=== PATIENT | female | born 1945 | race Asian ===

== ENCOUNTER 2022-02-19 21:34 | Emergency (ER) | payer MEDICAID ==
[~2022-02-19] VITALS: Ht 152.4 cm; Wt 69.0 kg
[2022-02-19] MEDS ORDERED: ONDANSETRON HCL 4MG/2ML INJ IV STA (22:13)
[2022-02-19] MEDS ORDERED: SODIUM CHLORIDE 0.9% 1,000 ML IV ONE (22:15)
[2022-02-19] MEDS ORDERED: METOCLOPRAMIDE HCL 10MG/2ML VIAL IV ONE (22:45)
[2022-02-19] MEDS ORDERED: ACETAMINOPHEN 325MG TABLET PO ONE (22:45)
[2022-02-19 22:52] LABS: HEMATOCRIT. 37.7 % (36.0-48.0); HEMOGLOBIN. 12.1 g/dL (12.0-16.0); MEAN CORPUSCULAR HEMOGLOBIN 27.8 pg (28.0-32.0); MEAN CORPUSCULAR VOLUME 86.6 fL (81.0-99.0); MEAN PLATELET VOLUME 7.5 fl (7.4-10.4); PLATELET 368 x1000/uL (130-400); RED BLOOD CELL COUNT 4.35 mill/uL (4.2-5.4); RED CELL DISTRIBUTION WIDTH 14.6 % (11.6-14.6)
[2022-02-19 23:02] LABS: CHLORIDE 104 mEq/L (98-107)
[2022-02-19 23:11] LABS: ETHANOL BLOOD < 10 mg/dL
[2022-02-19 23:21] LABS: PLATELET ESTIMATE NORMAL
[2022-02-19] MEDS ORDERED: DEXAMETHASONE 10 MG/ML VIAL IV ONE (23:30)
[2022-02-19] MEDS ORDERED: NICARDIPINE 40MG/200ML PREMIX 200 ML IV PRN (23:30)
[2022-02-20] MEDS ORDERED: NIMODIPINE 30MG CAPSULE PO SCH
[2022-02-20 02:46] VITALS: BP 151/75
== END 2022-02-20 03:17 | disposition short-term general hospital (02) ==
LOC: ER 21:34
DX: I60.12 Nontraumatic subarachnoid hemorrhage from left middle cerebral artery (principal); I10 Essential (primary) hypertension; E87.2 Acidosis; D72.829 Elevated white blood cell count, unspecified; R11.2 Nausea with vomiting, unspecified; Z20.822 Contact with and (suspected) exposure to COVID-19
CPT/HCPCS: 36415; 70450; 70496; 70498; 71045; 80053; 80320; 83605; 83690; 83880; 84484; 85025; 86850; 86900; 86901; 87426; 93005; 96361; 96374; 96375; 99291; J1100; J2765; J7030; G0480